=== PATIENT | female | born 1985 | race Caucasian/White ===

== ENCOUNTER → 2020-06-24 | Outpatient (REF) | payer OTHER ==
[2020-06-24 14:13] LABS: BASO % 0.5 % (0.0-1.0); EOS # 0.1 10^3/uL (0.0-0.5); HEMATOCRIT 33.4 % (36.0-47.0); HEMOGLOBIN 9.7 g/dl (12.0-15.5); LYMPH # 2.1 10^3/uL (1.5-5.0); LYMPH % 23.2 % (24.0-44.0); MEAN CORPUSCULAR HEMOGLOBIN 22.6 pg (27.0-33.0); MEAN CORPUSCULAR VOLUME 77.7 fl (80.0-96.0); MONO # 0.6 10^3/uL (0.0-0.8); MONO % 6.3 % (0.0-5.0); NEUTROPHILS # 6.1 10^3/uL (1.5-8.5); NEUTROPHILS % 68.8 % (36.0-66.0); PLATELET COUNT, AUTOMATED 276 10^3/uL (150-450); WHITE BLOOD COUNT 8.9 10^3/uL (4.0-10.0)
[2020-06-24 14:28] LABS: ALBUMIN 3.5 GM/DL (3.2-5.2); ALT/SGPT 21 U/L (12-78); BILIRUBIN,TOTAL 0.1 MG/DL (0.2-1.0); BLOOD UREA NITROGEN 9 MG/DL (7-18); CALCIUM LEVEL 8.9 MG/DL (8.5-10.1); CARBON DIOXIDE LEVEL 27 MEQ/L (21-32); CHLORIDE LEVEL 107 MEQ/L (98-107); CHOLESTEROL LEVEL 158 MG/DL (<200); CHOLESTEROL RISK RATIO 2.194 (<5); CREATININE FOR GFR 0.54 MG/DL (0.55-1.30); GLOMERULAR FILTRATION RATE > 60.0 (>60); GLUCOSE, FASTING 99 MG/DL (70-100); HDL CHOLESTEROL 72 MG/DL (>40); LDL CHOLESTEROL 70 MG/DL (<100); NON-HDL-C 86 MG/DL; POTASSIUM SERUM 4.5 MEQ/L (3.5-5.1); SODIUM LEVEL 140 MEQ/L (136-145); TOTAL 25(OH) VITAMIN D 20.9 NG/ML (30.0-100.0); TOTAL PROTEIN 6.7 GM/DL (6.4-8.2); TRIGLYCERIDES LEVEL 81 MG/DL (<150)
[2020-06-24 14:55] LABS: HEMOGLOBIN A1c 5.4 %
== END ==
LOC: M LAB REF 12:47
PROVIDERS: ATTEND Family Medicine
DX: I10 Essential (primary) hypertension (principal)

== ENCOUNTER → 2020-07-07 | Outpatient (REF) | payer OTHER ==
[~2020-07-07] MED LIST: AMLO1TAB25 PO; BUTA-198 PO; IBUP200C28 PO; LISI40TA PO; PEPT262S PO
[2020-07-07 18:00] LABS: BASO % 0.2 % (0.0-1.0); EOS % 0.5 % (0.0-3.0); HEMATOCRIT 31.7 % (36.0-47.0); HEMOGLOBIN 9.4 g/dl (12.0-15.5); LYMPH # 1.7 10^3/uL (1.5-5.0); MEAN CORPUSCULAR HEMOGLOBIN 22.8 pg (27.0-33.0); MEAN CORPUSCULAR HGB CONC 29.7 g/dl (32.0-36.5); MEAN CORPUSCULAR VOLUME 76.8 fl (80.0-96.0); MONO # 0.5 10^3/uL (0.0-0.8); NEUTROPHILS # 4.4 10^3/uL (1.5-8.5); NEUTROPHILS % 66.1 % (36.0-66.0); PLATELET COUNT, AUTOMATED 305 10^3/uL (150-450); RED BLOOD COUNT 4.13 10^6/uL (4.00-5.40); WHITE BLOOD COUNT 6.6 10^3/uL (4.0-10.0)
[2020-07-07 18:39] LABS: FOLATE 8.6 NG/ML
== END ==
LOC: M LAB REF 16:46
PROVIDERS: ATTEND Nurse Practitioner Family
DX: D64.9 Anemia, unspecified (principal); Z13.9 Encounter for screening, unspecified; N80.9 Endometriosis, unspecified

== ENCOUNTER 2020-07-22 09:25 | Inpatient (IN) | payer OTHER ==
[2020-07-22] VITALS (7 sets, daily range): BP systolic 107–152; BP diastolic 72–87
[~2020-07-22] VITALS: Ht 152.4 cm; Wt 53.7 kg
[2020-07-22] MEDS ORDERED: NS 1,360 ML in IV 1 EA IV ONE (09:45)
[2020-07-22] MEDS ORDERED: cefTRIAXone SOD 2 GM in D5W MINI-BAG PLUS 50 ML IV ONE (10:00)
--- NOTE | 2020-07-22 10:11 | REP ---
INDICATION: SEPSIS/SHOCK. COMPARISON: None. TECHNIQUE: SINGLE PORTABLE AP VIEW OF THE CHEST WAS PERFORMED. FINDINGS: There is no acute infiltrate in either lung. The heart mediastinum are within normal limits. There is a large amount of free intraperitoneal air beneath each hemidiaphragm. IMPRESSION: NO ACUTE PULMONARY DISEASE.Large amount of free intraperitoneal air. Critical Findings: Large amount of free intraperitoneal air in the abdomen. The critical information above was relayed directly by me by telephone to Regi Garland on 07/22/2020 at 10:07 am with readback verification. <Electronically signed by Rj Gibson > 07/22/20 [id number]
[2020-07-22] MEDS ORDERED: PIPERACILLIN/TAZOBACTAM SOD 4.5 GM in D5W MINI-BAG PLUS 50 ML IV ONE (10:15)
[2020-07-22] MEDS ORDERED: KCL 10MEQ/100ML SWI (KRUN) 10 MEQ in IV 1 EA IV ONE ×3 (10:30→17:00)
[2020-07-22 10:37] LABS: HEMATOCRIT 53.7 % (36.0-47.0); HEMOGLOBIN 15.5 g/dl (12.0-15.5); MEAN CORPUSCULAR HEMOGLOBIN 22.1 pg (27.0-33.0); MEAN CORPUSCULAR HGB CONC 28.9 g/dl (32.0-36.5); MEAN CORPUSCULAR VOLUME 76.6 fl (80.0-96.0); PLATELET COUNT, AUTOMATED 542 10^3/uL (150-450); RED BLOOD COUNT 7.01 10^6/uL (4.00-5.40); WHITE BLOOD COUNT 21.6 10^3/uL (4.0-10.0)
[2020-07-22 10:53] LABS: INR 1.51; PARTIAL THROMBOPLASTIN TIME 29.8 SECONDS (24.2-38.5); PROTHROMBIN TIME 18.5 SECONDS (12.5-14.3)
[2020-07-22 11:04] LABS: LYMPHOCYTES 19 % (16-44); METAMYELOCYTES 11 % (0-0); MONOCYTES 5 % (0-5); NEUTROPHILS 24 % (28-66)
[2020-07-22 11:07] LABS: PLATELET ESTIMATE NORMAL (NORMAL)
[2020-07-22] MEDS ORDERED: BUPIVACAINE HCL 0.25% 30ML VIAL As Ordered ONE (11:18)
--- NOTE | 2020-07-22 11:18 | REP ---
INDICATION: perf , free air. COMPARISON: Chest radiograph the same day.. TECHNIQUE: CT Scan of the abdomen and pelvis was performed without intravenous contrast. Sagittal and coronal reconstruction images performed. FINDINGS: Lung bases: Unremarkable. Liver: Grossly unremarkable. Gallbladder: Unremarkable. Spleen: Grossly unremarkable.. Adrenals: Normal. Pancreas: Grossly unremarkable.. Kidneys: No hydronephrosis or nephrolithiasis. Ureters demonstrate no dilatation or calculus. Small and large bowel: Grossly unremarkable. There is dense material scattered throughout the GI tract. Patient reports taking Pepto-Bismol recently which accounts for this. There is extensive free air and free fluid throughout the abdomen and pelvis. It is difficult to determine a precise site of perforation. There is focal possible extraluminal air to the right of the rectum which could represent a site of perforation, or could represent a portion of tortuous air filled rectum. Very small amount of dense material is seen in the right paracolic gutter within the free fluid in that area. Abdominal aorta: No aneurysm. Adenopathy: None. Appendix: Not visualized. Osseous structures: Unremarkable. Pelvis: No mass. Bladder is not seen. IMPRESSION: There is dense material scattered throughout the GI tract. Patient reports taking Pepto-Bismol recently which accounts for this. There is extensive free air and free fluid throughout the abdomen and pelvis. It is difficult to determine a precise site of perforation. There is focal possible extraluminal air to the right of the rectum which could represent a site of perforation, or could represent a portion of tortuous air filled rectum. Very small amount of dense material is seen in the right paracolic gutter within the free fluid in that area. Critical Findings: Extensive free air and free fluid throughout the abdomen and pelvis. Focal air to the right of the rectum may indicate a site of perforation. The critical information above was relayed directly by me by telephone to Regi Garland on 07/22/2020 at 11:09 am with readback verification. <Electronically signed by Rj Gibson > 07/22/20 [id number]
[2020-07-22] MEDS ORDERED: LIDOCAINE 1% SDV 30ML VIAL As Ordered ONE (11:19)
[2020-07-22] MEDS ORDERED: BUTA-198 PO (11:22)
[2020-07-22] MEDS ORDERED: AMLO1TAB25 PO (11:22)
[2020-07-22] MEDS ORDERED: LISI40TA PO (11:22)
[2020-07-22] MEDS ORDERED: PEPT262S PO (11:25)
[2020-07-22] MEDS ORDERED: IBUP200C28 PO (11:25)
[2020-07-22 11:35] LABS: ACETAMINOPHEN LEVEL 7.7 UG/ML (10.0-30.0); ALBUMIN 3.1 GM/DL (3.2-5.2); ALT/SGPT 22 U/L (12-78); AMYLASE 66 U/L (25-115); BILIRUBIN,DIRECT 0.3 MG/DL (0.0-0.2); BILIRUBIN,TOTAL 0.7 MG/DL (0.2-1.0); BLOOD UREA NITROGEN 26 MG/DL (7-18); CALCIUM LEVEL 10.2 MG/DL (8.5-10.1); CARBON DIOXIDE LEVEL 14 MEQ/L (21-32); CHLORIDE LEVEL 92 MEQ/L (98-107); CK-MB VALUE MASS 2.3 NG/ML (<3.6); CPK CREATINE PHOSPHOKINASE 62 U/L (26-192); CREATININE FOR GFR 2.26 MG/DL (0.55-1.30); ETHYL ALCOHOL (ETHANOL) < 0.003 % (0.000-0.010); GLOMERULAR FILTRATION RATE 26.1 (>60); GLUCOSE, FASTING 102 MG/DL (70-100); MAGNESIUM LEVEL 3.3 MG/DL (1.8-2.4); MB/CK RELATIVE INDEX 3.71 (< OR =4); PHOSPHORUS LEVEL 13.1 MG/DL (2.5-4.9); POTASSIUM SERUM 3.3 MEQ/L (3.5-5.1); SALICYLATE LEVEL 2.1 MG/DL (5.0-30.0); SODIUM LEVEL 132 MEQ/L (136-145); TROPONIN I < 0.02 NG/ML (< 0.10)
[2020-07-22] MEDS ORDERED: LIDOCAINE 2% 100MG/5ML SDV (FOR ANES.) As Ordered ONE (11:37)
[2020-07-22] MEDS ORDERED: propofoL 200 MG/20 ML VIAL As Ordered ONE (11:37)
[2020-07-22] MEDS ORDERED: ROCURONIUM BROMIDE 50 MG/5 ML VIAL As Ordered ONE (11:37)
[2020-07-22] MEDS ORDERED: fentaNYL 250 MCG/5 ML INJECTION (J3010) As Ordered ONE (11:38)
[2020-07-22] MEDS ORDERED: MIDAZOLAM INJ 2MG/2ML VIAL (J2250 PER 1MG) As Ordered ONE ×2 (11:38→12:00)
--- NOTE | 2020-07-22 11:39 | HPEPDOC ---
General Surgery H&P Date of Admission Jul 22, 2020 Attending Physician: BRY INFANTE MD History and Physical CHIEF COMPLAINT: abdominal pain,vomiting HISTORY OF PRESENT ILLNESS: Patient is a 35-year-old female with a history of some sort of chronic abdominal pain which was initially attributed to endometriosis. She has just transferred here from [place] as her is in the area she reports that symptoms started about Sunday she was feeling some lower abdominal pain, cervical crampy that she initially attributed to her endometriosis flaring up. This was accompanied with nausea and multiple episodes of bilious vomiting. Symptoms persisted through to Sunday with the pain has worsened despite about Sunday. She was then brought by her to the emergency room as her symptoms was getting worse. She reports shortness of breath due to the degree of pain. She has not had a bowel movement since. She has not really eaten much since the start of her symptoms. Baseline she reports no chronic medical problems save for presumably her endometriosis. Patient reports taking ibuprofen and Pepto-Bismol for her chronic abdominal pain about 4 tablets 2-3 times a day of a 200 mg ibuprofen daily. ALLERGIES: Please see below. HOME MEDICATIONS: Please see below. PAST MEDICAL HISTORY: 1. Chronic abdominal pain probably secondary to endometriosis. 2. hypertension PAST SURGICAL HISTORY: No past surgical history PERSONAL/SOCIAL HISTORY: Patient reports smoking about half a pack a day. Denies alcohol use or recreational drug use.. REVIEW OF SYSTEMS: GENERAL: Symptoms roughly about 5 days, progressive. Denies fevers or chills. Denies any ongoing abnormal weight loss. HEENT: Denies any vision or hearing problems. NECK: [Denies any neck pain]. CARDIOVASCULAR: [Denies chest pain and palpitations]. MUSCULOSKELETAL: [Denies arthralgias, back pain and thrombophlebitis]. SKIN: [Denies rash]. NEUROLOGIC: [Denies headache, stroke and transient ischemic attack]. PSYCHIATRIC: [Denies anxiety and depression]. ENDOCRINE: [Denies thyroid disease]. HEMATOLOGY/ONCOLOGY: [Denies any bleeding or clotting disorder]. HEART: [Denies any chest pains, palpitations, paroxysmal dyspnea, orthopnea]. PULMONARY: Patient reports slight shortness of breath due to pain with deep breathing. GASTROINTESTINAL: See HPI. GENITOURINARY: [Denies dysuria, frequency, hematuria and nocturia]. ENDOCRINE: [Denies polydipsia, polyphagia, polyuria, heat or cold intolerance]. INFECTIOUS: [Denies any recent upper respiratory tract infection, UTI, need for use of antibiotics]. NUTRITION: Reports poor appetite. PHYSICAL EXAMINATION: VITAL SIGNS: Please see below. GENERAL APPEARANCE: Patient appears sick, tachypneic, use of accessory muscles with talking, breathing, uncomfortable. not moving/single position laying flat on bed. Awake, alert, oriented. Looks older than stated age HEENT: Normocephalic, atraumatic. lips and mucosa very dry CHEST: No chest wall abnormalities. Normal respiratory motion/effort. NECK: Supple. No thyromegaly. No lymphadenopathies. LUNGS: Lung sounds are clear to auscultation bilaterally. No wheezing appreciated.tachypneic, uses accessory muscles for breathing HEART: No chest wall abnormalities. Heart rate and rhythm are regular with no murmurs, tachycardic ABDOMEN: abdomen is moderately distended, tympanitic to percussion, generalized involuntary guarding on percussion, tender worse at the right lower quadrant area but tender everywhere. SKIN: warm, dry. EXTREMITIES: no significant extremity edema. NEUROLOGICAL: awake, alert, oriented. ANCILLARIES: . LABORATORY DATA: Please see below. MICROBIOLOGY: Please see below. IMAGING: CXR. NO ACUTE PULMONARY DISEASE.Large amount of free intraperitoneal air. IMPRESSION AND PLAN: Perforated viscus, pneumoperitoneum generalized peritonitis Patient appears sick, septic with generalized peritonitis secondary to pe rforated viscus with large amount of air underneath the diaphragm. Given a general history as well as the intake of NSAIDs I would think probably gastric or duodenal ulcer with perforation though most of her tenderness or over the right lower quadrant area so possibility of some sigmoid diverticulitis with perforation also. Patient was advised that she needs to go to the operating room emergently. I'll start with diagnostic laparoscopy to locate site of perforation and depending from what needs to be done may need to be converted to exploratory laparotomy. I've also praised her and her potential need for prolonged intubation, need for pressors, blood transfusion given how sick she presented to us. She has been given at least a liter of IV fluid . With a somewhat adequate or appropriate response hemodynamically. We will bring her to the operating room once the OR is available. Vital Signs Vital Signs Date Time Temp Pulse Resp B/P (MAP) Pulse Ox O2 Delivery O2 Flow Rate FiO2 07/22/20 11:16 121 109/60 (76) 98 07/22/20 11:14 97.0 07/22/20 09:48 26 Room Air Laboratory Data Labs 24H Laboratory Tests 2 07/22/20 09:59: POC pH (Misc Panel) 7.116*L, POC Base Excess (Misc Panel) -22.0L, POC Saturated Percent O2 (Misc) 98, POC pO2 (Misc Panel) 127.0H, POC pCO2 (Misc Panel) 21.5L, POC HCO3 (Misc Panel) 6.9L, POC Total CO2 (Misc Panel) 8.0L 07/22/20 10:15: Neutrophils (%) (Auto) , Nucleated Red Blood Cells % (auto) 0.1H, Neutrophils 24L, Band Neutrophils 41H, Lymphocytes (Manual) 19, Monocytes (Manual) 5, Metamyelocytes 11H, Red Blood Cell Morphology NORMAL, Platelet Estimate NORMAL, Prothrombin Time 18.5H, Prothromb Time International Ratio 1.51, Activated Partial Thromboplast Time 29.8, Lactic Acid Level 14.9*H 07/22/20 10:16: POC Total CO2 (Misc Panel) 16.0L, POC Glucose (Misc Panel) 105, POC Sodium (Misc Panel) 131L, POC Potassium (Misc Panel) 2.6*L, POC Chloride (Misc Panel) 94L, POC Blood Urea Nitrogen (Misc Panel 29H, POC Ionized Calcium (Misc Panel) 4.6, POC Creatinine (Misc Panel) 2.1H, POC Hematocrit (Misc Panel) 56.0H 07/22/20 10:20: POC Beta HCG, Quantitative < 5.0 07/22/20 10:22: Coronavirus (COVID-19)(PCR) NEGATIVE CBC/BMP Laboratory Tests 07/22/20 10:15 Microbiology Microbiology 07/22/20 Blood Culture, Received Pending 07/22/20 Blood Culture, Received Pending Home Medications Scheduled Amlodipine Besylate (Amlodipine Besylate) 10 Mg Tablet, 10 MG PO DAILY, (Reported) Lisinopril (Lisinopril) 40 Mg Tablet, 40 MG PO DAILY, (Reported) Scheduled PRN Bismuth Subsalicylate (Pepto-Bismol) 262 Mg/15 Ml Oral.susp, 30 ML PO PRN PRN for NAUSEA, (Reported) Butalb/Acetaminophen/Caffeine (Iqxmvr-Pytorhva-Mzrw 50-325-40) 1 Each Tablet, 1 TAB PO TID PRN for HEADACHE, (Reported) Ibuprofen (Ibuprofen) 200 Mg Capsule, 800 MG PO TID PRN for PAIN / FEVER, (Reported) Allergies Coded Allergies: No Known Allergies (Unverified , 07/22/20) A-FIB/CHADSVASC A-FIB History Current/History of A-Fib/PAF?: No Current PO Anticoag Therapy: No BRY INFANTE MD Jul 22, 2020 11:39
[2020-07-22] MEDS ORDERED: PHENYLephrine HCL 500 MCG/5 ML (100MCG/ML) SYRINGE (J2370) As Ordered ONE ×2 (12:19→12:25)
[2020-07-22] MEDS ORDERED: VASOPRESSIN INJ 20 UNITS/ML VIAL As Ordered ONE (12:19)
[2020-07-22] MEDS ORDERED: SUCCINYLCHOLINE 100 MG/5 ML SYRINGE (J0330) As Ordered ONE (12:52)
[2020-07-22] MEDS ORDERED: PHENYLEPHRINE 10MG/ML 1ML VIAL (J2370 PER 1) As Ordered ONE ×2 (13:46→14:04)
[2020-07-22] MEDS ORDERED: ACETAMINOPHEN 1000MG 100ML IV BTL (OFIRMEV) (J0131 PER 10MG) As Ordered ONE (14:16)
[2020-07-22] MEDS ORDERED: dexameTHASONE 4 MG/ML 1ML VIAL (J1100 PER 1MG) As Ordered ONE (14:16)
[2020-07-22] MEDS ORDERED: ONDANSETRON 4MG/2ML VIAL As Ordered ONE (14:16)
[2020-07-22] MEDS ORDERED: SUGAMMADEX SODIUM 500 MG/5 ML VIAL (BRIDION) As Ordered ONE (14:37)
[2020-07-22] MEDS ORDERED: HYDROmorphone HCL 2 MG/ML 1ML VIAL (J1170) As Ordered ONE (15:21)
[2020-07-22] MEDS ORDERED: NS 1,000 ML IV SCH (15:40)
[2020-07-22] MEDS ORDERED: ONDANSETRON 4MG/2ML VIAL IV PRN ×3 (15:45→17:00)
[2020-07-22] MEDS ORDERED: ACETAMINOPHEN TAB 650MG DOSE (2X325MG) PO PRN (15:45)
[2020-07-22] MEDS ORDERED: KETOROLAC 30 MG/ML 1ML VIAL IV PRN (15:45)
[2020-07-22] MEDS ORDERED: MORPHINE 1MG/ML IN 0.9% NACL 100ML IV BAG As Ordered ONE (15:57)
--- NOTE | 2020-07-22 15:59 | POST-OPPD ---
Postoperative Procedure Note Date Of Procedure: Jul 22, 2020 PREOPERATIVE DIAGNOSIS: perforated viscus POSTOPERATIVE DIAGNOSIS: perforated antral ulcer FINDINGS: large perforated antral ulcer at the posterior wall PROCEDURE: Diagnostic Laparoscopy converted to Exploratory Laparotomy, Antrectomy, Greer-en-Y gastrojejunostomy SURGEON: Desean Carson MD CLIENT SERVICES ANALYST: Estephania Ashby (MSIII) ANESTHESIA: General Anesthesia SPECIMENS: gastric antrum ESTIMATED BLOOD LOSS: 100 mL REPLACED: 4500 mL crystalloid, 250 mL urine DRAINS: 19 Joel Drain to duodenal stump COMPLICATIONS: none, extubated to PACU, remains critically ill POSTOPERATIVE CONDITION: stable, off pressors DESEAN CARSON MD Jul 22, 2020 15:59
[2020-07-22] MEDS ORDERED: EPIDURAL/PCA KEYS XX PRN (16:00)
[2020-07-22] MEDS ORDERED: diphenhydrAMINE 50MG/ML VIAL (J1200) IV PRN (16:00)
[2020-07-22] MEDS ORDERED: NALOXONE INJ 0.4MG/1ML VIAL (J2310 PER 1MG) IV PRN (16:00)
[2020-07-22] MEDS: MORPHINE 1MG/ML IN 0.9% NACL 100ML IV BAG IV PRN (16:05)
[2020-07-22 16:09] LABS: ABG BASE EXCESS -8.2 (-2.0-2.0); ABG HCO3 16.9 MEQ/L (22.0-26.0); ABG O2 SATURATION 98.9 % (95.0-99.0); ABG PARTIAL PRESSURE CO2 33.1 mmHg (35.0-45.0); ABG PARTIAL PRESSURE O2 142.9 mmHg (75.0-100.0); ABG STANDARD HCO3 17.9 MEQ/L (22.0-26.0); ABG TOTAL CO2 17.9 MEQ/L (22.0-29.0); ABG pH (ARTERIAL) 7.325 UNITS (7.350-7.450)
[2020-07-22 16:29] LABS: HEMATOCRIT 33.5 % (36.0-47.0); MEAN CORPUSCULAR HEMOGLOBIN 21.8 pg (27.0-33.0); MEAN CORPUSCULAR HGB CONC 30.4 g/dl (32.0-36.5); MEAN CORPUSCULAR VOLUME 71.7 fl (80.0-96.0); RED BLOOD COUNT 4.67 10^6/uL (4.00-5.40); WHITE BLOOD COUNT 15.4 10^3/uL (4.0-10.0)
[2020-07-22 16:41] LABS: ALBUMIN 1.6 GM/DL (3.2-5.2); ALT/SGPT 40 U/L (12-78); BILIRUBIN,TOTAL 0.4 MG/DL (0.2-1.0); BLOOD UREA NITROGEN 24 MG/DL (7-18); CALCIUM LEVEL 6.8 MG/DL (8.5-10.1); CARBON DIOXIDE LEVEL 20 MEQ/L (21-32); CHLORIDE LEVEL 106 MEQ/L (98-107); GLOMERULAR FILTRATION RATE > 60.0 (>60); GLUCOSE, FASTING 109 MG/DL (70-100); POTASSIUM SERUM 3.2 MEQ/L (3.5-5.1); SODIUM LEVEL 138 MEQ/L (136-145); TOTAL PROTEIN 3.6 GM/DL (6.4-8.2)
[2020-07-22] MEDS ORDERED: LR 1,000 ML IV SCH (17:00)
[2020-07-22] MEDS ORDERED: fentaNYL 100 MCG/2 ML INJECTION (J3010) IV PRN (17:00)
[2020-07-22] MEDS ORDERED: HYDROMORPHONE HCL 0.5 MG/ 0.5 ML SYRINGE (J1170 PER 1) IV PRN (17:00)
[2020-07-22] MEDS ORDERED: METOCLOPRAMIDE INJ 10MG/2ML VIAL (J2765 PER 1) IV PRN (17:00)
[2020-07-22 17:29] LABS: HEMOGLOBIN 10.2 g/dl (12.0-15.5); PLATELET COUNT, AUTOMATED 309 10^3/uL (150-450)
[2020-07-22 17:43] LABS: LYMPHOCYTES 5 % (16-44); NEUTROPHILS 90 % (28-66)
[2020-07-22 17:44] LABS: ANISOCYTOSIS 2+; MICROCYTOSIS 1+; OVALOCYTES 1+; PLATELET ESTIMATE NORMAL (NORMAL)
[2020-07-22] MEDS: PIPERACILLIN/TAZOBACTAM SOD 3.375 GM in D5W MINI-BAG PLUS 50 ML IV SCH ×2 (17:54→22:58)
[2020-07-22] MEDS: LR 1,000 ML IV SCH (17:54)
[2020-07-22] MEDS ORDERED: FLUCONAZOLE 200 MG in IV 1 EA IV ONE (21:00)
[2020-07-23] VITALS (12 sets, daily range): BP systolic 107–159; BP diastolic 59–97
[2020-07-23] MEDS: LR 1,000 ML IV SCH (03:07)
[2020-07-23] MEDS: PIPERACILLIN/TAZOBACTAM SOD 3.375 GM in D5W MINI-BAG PLUS 50 ML IV SCH ×4 (05:27→23:45)
[2020-07-23 05:57] LABS: HEMATOCRIT 27.8 % (36.0-47.0); HEMOGLOBIN 8.5 g/dl (12.0-15.5); MEAN CORPUSCULAR HEMOGLOBIN 21.9 pg (27.0-33.0); MEAN CORPUSCULAR HGB CONC 30.6 g/dl (32.0-36.5); MEAN CORPUSCULAR VOLUME 71.5 fl (80.0-96.0); PLATELET COUNT, AUTOMATED 266 10^3/uL (150-450); RED BLOOD COUNT 3.89 10^6/uL (4.00-5.40); WHITE BLOOD COUNT 18.1 10^3/uL (4.0-10.0)
[2020-07-23 06:20] LABS: BLOOD UREA NITROGEN 13 MG/DL (7-18); CALCIUM LEVEL 7.3 MG/DL (8.5-10.1); CARBON DIOXIDE LEVEL 24 MEQ/L (21-32); CHLORIDE LEVEL 108 MEQ/L (98-107); CREATININE FOR GFR 0.41 MG/DL (0.55-1.30); GLOMERULAR FILTRATION RATE > 60.0 (>60); GLUCOSE, FASTING 83 MG/DL (70-100); POTASSIUM SERUM 3.2 MEQ/L (3.5-5.1); SODIUM LEVEL 141 MEQ/L (136-145)
--- NOTE | 2020-07-23 07:01 | ECGEPIP ---
[facility] - ED Test Date: 2020-07-22 Pat Name: BASILIO JADE Department: Room: - Gender: Female Legal Manager: : [id number] Requested By: Regi Garland Order Number: [id number] Reading MD: Panda Uribe Measurements Intervals [place] Rate: 136 P: 58 NM: 92 QRS: 38 QRSD: 90 T: 57 QT: 305 QTc: 459 Interpretive Statements SINUS TACHYCARDIA WITH SHORT NM INTERVAL p pULMONALE NONSPECIFIC ST & T-WAVE ABNORMALITY Comparison tracing not on file Electronically Signed on 07-23-2020 7:01:20 EDT by Panda Uribe
[2020-07-23] MEDS ORDERED: KCL 10MEQ/100ML SWI (KRUN) 10 MEQ in IV 1 EA IV ONE (07:30)
--- NOTE | 2020-07-23 08:14 | IPNPDOC ---
Text Note Date of Service The patient was seen on 07/23/20. NOTE Patient seen in the ICU. She underwent emergency exploratory laparotomy and found to have a large posterior wall perforation secondary to an ulcer at the antrum status post antrectomy and Greer-en-Y gastrojejunostomy. Overnight she is hemodynamically stable. Her tachycardia has improved and she is making adequate urine output. She reports discomfort along the incision line. Denies any nausea. Vital signs postoperatively shows her tachycardia is slowly improving. Heart rat es anywhere between 80s to low 100 100s. Temperature is 98.2. Blood pressure is 117/72, 99% at room air I/O urine output is 1400 mL overnight 650 mL drain this morning. NG tube drainage is 50 mL's VINOD drainage is 300 mL's On examination patient is laying wide-awake, looks fairly comfortable she is alert and oriented. She has a nasogastric tube in place working appropriately with bilious drainage No jugular venous distention Lung sounds are clear to auscultation bilaterally Regular rhythm, mildly tachycardic Abdomen is mildly distended soft relatively quiet. Postoperative dressings are clean and dry. VINOD drainage which is at or close to the duodenal stump is serosanguineous Minimal extremity edema Impression and plan Postoperative day 1 following exploratory laparotomy, antrectomy and Greer-en-Y gastrojejunostomy for posterior ventricle perforated ulcer She has done well postoperatively. I'll keep her nothing by mouth this allow her some sips of water. Tentatively we'll schedule an upper GI series on Sunday prior to feeding her. I'll keep her in the ICU today and most likely she'll be okay to be moved to a regular floor she remained stable 24 hours post procedure. I encouraged her to use the incentive spirometer. I have kept her on Protonix 40 mg IV every 12 hours as well as those and and Diflucan for coverage. Get her out of bed at least in the drop on the chair today. Lovenox for DVT prophylaxis. Continue morphine MARBLEIZER for pain control. VS,Fishbone, I+O VS, Fishbone, I+O Laboratory Tests 07/22/20 10:15 07/22/20 16:00 07/23/20 05:38 Vital Signs Date Time Temp Pulse Resp B/P (MAP) Pulse Ox O2 Delivery O2 Flow Rate FiO2 07/23/20 05:00 92 117/72 (91) 99 Room Air 149/74 07/23/20 04:00 98.2 16 07/22/20 19:00 2.0 I&O- Last 24 Hours up to 6 AM 07/23/20 06:00 Intake Total 8175 ml Output Total 2520 ml Balance 5655 ml BRY INFANTE MD Jul 23, 2020 08:14
[2020-07-23] MEDS: KCL 20MEQ IN D5/0.45NS 1000ML 1,000 ML IV SCH ×2 (08:24→16:22)
--- NOTE | 2020-07-23 08:35 | ROOPDOC ---
[facility] Report Of Operation Report of Operation DATE OF PROCEDURE: 07/22/20 PREPROCEDURE DIAGNOSES: Perforated viscus. POSTPROCEDURE DIAGNOSES: Perforated posterior antral ulcer. PROCEDURE: Diagnostic laparoscopy converted to an exploratory laparotomy, antrectomy, Greer-en-Y gastrojejunostomy, washout of abdomen SURGEON: Desean Carson MD ROD HANGER: Estephania Ashby (MS III) ANESTHESIA: General Anesthesia. ESTIMATED BLOOD LOSS: Approximately 100 mL. COMPLICATIONS: none. REMARKS: Patient is a 35-year-old female presenting with sepsis, generalized peritonitis and evidence of large amount of pneumoperitoneum as well as ascites on CT. She is brought to the OR for exploration after a brief period of IV fluid resuscitation.. PROCEDURE NOTE: Large amounts of murky fluid throughout the abdomen with exudative material covering the small bowel in the pelvis, no loculated abscess. Large posterior antral ulcer and markedly gradation of the posterior wall of the stomach adhered to the pancreas underneath.. DESCRIPTION OF PROCEDURE: Patient was given Zosyn 3.375 g IV preoperatively. She was given fluid boluses in the emergency room for resuscitation. She was brought to the operating room, placed supine on the table. Bilateral compression boots were placed on both lower extremities were DVT prophylaxis. Gen. endotracheal anesthesia was given. She was placed on vasopressor for pressure support. An a line was established by anesthesia. Brewster catheter was placed for urine output monitoring. Her abdomen was widely prepped and draped in usual sterile fashion. We paused for a surgical timeout using both pre-incision safety checklist to verify correct patient, procedure site and additional clinical information prior to beginning the proced ure I began with the left upper quadrant entry. A Veress needle was inserted on a controlled fashion. CO2 insufflation and started to pressure of 15 mmHg. Using the same incision a 5 mm optical port was placed under direct vision of laparoscope. On entry to the abdomen in immediately noted a large amount of greenish, murky ascites throughout the whole of the abdomen. Most of the bowels were covered with thin omentum. There is generalized ileus noted. There is a noticeable area of inflammation at the distal portion of the stomach with some old hematoma also noted. I placed a 5 mm port just below the umbilicus and another at the right and left midclavicular lines for my instrument and camera port. She was placed on a mild reverse Trendelenburg position her right side tilted upwards. Epting some no fluid sample for cultures. The visible ascites were suctioned off on the upper abdomen. I started bluntly dissecting at the area of the notable hematoma and lifted the lower portion of the stomach and immediately noticing large opening at the posterior wall of the antrum with heaped up mucosa. The whole is more than 2 cm in size. There is some mild oozing along the lower border of the perforation. Noting the size of the hole which would not be amenable to a simple omental patch repair, I then converted to open surgery. The abdomen was deflated, a midline incision was created at the mid epigastrium to several centimeters below the umbilicus. This was deepened through to the layers of the abdominal wall. The anterior fascia was opened up and lifted and entered the abdomen releasing the pneumoperitoneum. The fascial incision was extended through to the skin incisions and enlarged further for adequate view. A Jose self-retaining retractor was placed. All the prior laparoscopy ports were removed. At this point examined the area of the perforation. This is at the posterior wall of the gastric antrum. Roughly a 2 cm opening is noted with the posterior wall there is paper thin, covered with exudate and adherent to the capsule of the pancreas. The gastrocolic omentum proximal to this was opened up and I entered the lesser sac and the posterior wall of the stomach proximally from the pancreas. Similarly the gastrohepatic ligament was opened up along the lesser curvature both proximally and distally to the area of the perforation. An adequate window was created proximal to the perforation to the distal body of the stomach. The stomach was then divided with 3 firings of an echelon 60 mm stapler with a green load. Bring up the proximal stomach allow me to further work on the posterior wall at the area of the perforation and I carefully dissected this from the capsule of the pancreas. There are couple of enlarged lymph nodes that was included with the specimen. I dissected further beyond the perforation to the proximal duodenum. Once an adequate margin from the perforation which was healthy was achieved the duodenum was transected with the same echelon 60 stapler with a green load. The staple line was then reinforced with 3-0 PDS in a running fashion. I then explored the rest of the abdomen. The rest of the small bowel was exteriorized and there were exudative deposits on the wall of the distal small bowel in the pelvis. The pelvic collections were thoroughly irrigated until we have clear returns. The bowel was run antegradely to the cecum with visualization of the appendix which was normal. I then retrogradely ran the bowel and wiped of the exudates on the davenport of the small bowel. Until we reached the ligament of Treitz. I measured about 50 cm from the ligament of Treitz and divided the bowel at this level with a 75 mm MARKEL stapler with a blue load. The mesentery was further divided to allow me to pull the distal portion of the bowel to the posterior wall of the stomach. At this point I realized that there is a good sized defect in the mesocolon probably from the dissection of the stomach from the gastrocolic ligament. The colon itself remains viable and nonischemic. I positioned the distal limb posterior to the stomach with 3-0 silk stay sutures. An enterotomy/gastrotomy was created and a hfty-xe-avtz anastomosis was fashioned off with a 75 linear stapler with a blue load. The anastomosis was inspected for bleeding. The gastro-enterotomy was then repaired with a 30V LOC in a running fashion with a second layer of 3-0 silk in a Lembert fashion. The anastomosis was tested under water and no leak was noted. A jejuno-jejunostomy downstream was then fashioned off to complete the limb and connected the biliopancreatic limb downstream. This was again aligned with 3-0 silk stay sutures and an enteroenterostomy created. Again a 75 MARKEL stapler with a blue load was used to create a hitw-sq-pjas anastomosis between the 2 jejunal limbs. The enterotomy was then closed off with 30V LOC in a running fashion and a second layer of 3-0 silk in a Lembert fashion. Again we tested this anastomosis for a leak and no leak was noted. As there was a sizable gap in the mesocolon, I closed this off with interrupted sutures of 3-0 silk to the jejunal limb to prevent an internal hernia. A 19 Joel drain was then threaded through from the left side of the abdomen and left close to the duodenal stump for postoperative monitoring. The fascial opening was then closed with 3 running sutures of #1 Stratafix. The subcutaneous tissue was irrigated and the skin was closed with mame. Bulky gauze dressings in placed on top of the midline incision. The drain was secured to skin with 2-0 silk. The remaining lateral port incision was closed with mame. Patient held up during the procedure pretty well and we were able to wean her off the vasopressor. She made adequate urine. She was promptly awakened, extubated and brought to the recovery room in a stable condition. DESEAN CARSON MD Jul 23, 2020 08:35
[2020-07-23] MEDS: ENOXAPARIN 30MG/0.3ML SYRINGE (J1650 PER 10MG) SC SCH (09:47)
[2020-07-23] MEDS: PANTOPRAZOLE 40MG VIAL (C9113 PER 1) IV SCH (09:47)
[2020-07-23] MEDS: MORPHINE 1MG/ML IN 0.9% NACL 100ML IV BAG IV PRN (16:22)
[2020-07-23] MEDS: NICOTINE 14 MG/24 HR TRANSDERMAL TD PRN (17:25)
[2020-07-23] MEDS: FLUCONAZOLE 100 MG in IV 1 EA IV SCH (21:45)
[2020-07-24] VITALS (7 sets, daily range): BP systolic 142–160; BP diastolic 64–98
[2020-07-24] MEDS: PIPERACILLIN/TAZOBACTAM SOD 3.375 GM in D5W MINI-BAG PLUS 50 ML IV SCH ×4 (04:38→22:16)
[2020-07-24 04:42] LABS: HEMATOCRIT 26.4 % (36.0-47.0); HEMOGLOBIN 8.1 g/dl (12.0-15.5); MEAN CORPUSCULAR HEMOGLOBIN 22.4 pg (27.0-33.0); MEAN CORPUSCULAR HGB CONC 30.7 g/dl (32.0-36.5); MEAN CORPUSCULAR VOLUME 72.9 fl (80.0-96.0); PLATELET COUNT, AUTOMATED 214 10^3/uL (150-450); RED BLOOD COUNT 3.62 10^6/uL (4.00-5.40); WHITE BLOOD COUNT 15.8 10^3/uL (4.0-10.0)
[2020-07-24 04:57] LABS: BLOOD UREA NITROGEN 8 MG/DL (7-18); CALCIUM LEVEL 7.6 MG/DL (8.5-10.1); CARBON DIOXIDE LEVEL 28 MEQ/L (21-32); CHLORIDE LEVEL 105 MEQ/L (98-107); CREATININE FOR GFR 0.35 MG/DL (0.55-1.30); GLOMERULAR FILTRATION RATE > 60.0 (>60); GLUCOSE, FASTING 104 MG/DL (70-100); POTASSIUM SERUM 2.8 MEQ/L (3.5-5.1); SODIUM LEVEL 138 MEQ/L (136-145)
[2020-07-24 05:13] LABS: ANISOCYTOSIS 1+; LYMPHOCYTES 9 % (16-44); METAMYELOCYTES 2 % (0-0); MONOCYTES 2 % (0-5); NEUTROPHILS 82 % (28-66); PLATELET ESTIMATE NORMAL (NORMAL)
[2020-07-24 05:14] LABS: HYPOCHROMASIA 2+; POLYCHROMASIA 1+
[2020-07-24] MEDS ORDERED: KCL 10MEQ/100ML SWI (KRUN) 10 MEQ in IV 1 EA IV SCH (05:15)
[2020-07-24] MEDS ORDERED: POTASSIUM CHLORIDE INJ 40 MEQ in LR 1,000 ML IV SCH (06:00)
[2020-07-24 07:14] LABS: MAGNESIUM LEVEL 2.3 MG/DL (1.8-2.4)
[2020-07-24] MEDS: ENOXAPARIN 30MG/0.3ML SYRINGE (J1650 PER 10MG) SC SCH (09:35)
[2020-07-24] MEDS: PANTOPRAZOLE 40MG VIAL (C9113 PER 1) IV SCH (09:35)
[2020-07-24] MEDS: POTASSIUM CHLORIDE INJ 40 MEQ in NS 0.45% 1,000 ML IV SCH (11:58)
[2020-07-24] MEDS: FLUCONAZOLE 100 MG in IV 1 EA IV SCH (20:13)
[2020-07-25 02:00] VITALS: BP 138/82
[2020-07-25] MEDS: PIPERACILLIN/TAZOBACTAM SOD 3.375 GM in D5W MINI-BAG PLUS 50 ML IV SCH ×4 (04:32→23:12)
[2020-07-25] MEDS: POTASSIUM CHLORIDE INJ 40 MEQ in NS 0.45% 1,000 ML IV SCH ×3 (04:33→19:37)
[2020-07-25 06:00] VITALS: BP 138/76
[2020-07-25 08:42] LABS: BLOOD UREA NITROGEN 7 MG/DL (7-18); CALCIUM LEVEL 7.6 MG/DL (8.5-10.1); CARBON DIOXIDE LEVEL 28 MEQ/L (21-32); CHLORIDE LEVEL 103 MEQ/L (98-107); CREATININE FOR GFR 0.22 MG/DL (0.55-1.30); GLOMERULAR FILTRATION RATE > 60.0 (>60); GLUCOSE, FASTING 76 MG/DL (70-100); SODIUM LEVEL 139 MEQ/L (136-145)
[2020-07-25] MEDS: PANTOPRAZOLE 40MG VIAL (C9113 PER 1) IV SCH (09:22)
[2020-07-25] MEDS: ENOXAPARIN 30MG/0.3ML SYRINGE (J1650 PER 10MG) SC SCH (09:23)
[2020-07-25 10:00] VITALS: BP 135/72
[2020-07-25 14:00] VITALS: BP 156/86
[2020-07-25 18:05] VITALS: BP 160/80
[2020-07-25] MEDS: NICOTINE 14 MG/24 HR TRANSDERMAL TD PRN (18:56)
[2020-07-25] MEDS: MORPHINE 1MG/ML IN 0.9% NACL 100ML IV BAG IV PRN (19:37)
[2020-07-25] MEDS: lisinopriL 40 MG TAB PO SCH (20:10)
[2020-07-25] MEDS: FLUCONAZOLE 100 MG in IV 1 EA IV SCH (21:10)
[2020-07-25 22:00] VITALS: BP 164/88
[2020-07-26] VITALS (7 sets, daily range): BP systolic 144–164; BP diastolic 80–99
[2020-07-26] MEDS: PIPERACILLIN/TAZOBACTAM SOD 3.375 GM in D5W MINI-BAG PLUS 50 ML IV SCH ×4 (04:10→23:15)
[2020-07-26 06:28] LABS: BASO % 0.1 % (0.0-1.0); EOS % 0.2 % (0.0-3.0); HEMATOCRIT 28.8 % (36.0-47.0); HEMOGLOBIN 8.7 g/dl (12.0-15.5); LYMPH # 1.1 10^3/uL (1.5-5.0); LYMPH % 11.7 % (24.0-44.0); MEAN CORPUSCULAR HGB CONC 30.2 g/dl (32.0-36.5); MEAN CORPUSCULAR VOLUME 72.7 fl (80.0-96.0); MONO # 0.9 10^3/uL (0.0-0.8); MONO % 9.7 % (0.0-5.0); NEUTROPHILS # 7.5 10^3/uL (1.5-8.5); NEUTROPHILS % 77.8 % (36.0-66.0); PLATELET COUNT, AUTOMATED 239 10^3/uL (150-450); RED BLOOD COUNT 3.96 10^6/uL (4.00-5.40); WHITE BLOOD COUNT 9.6 10^3/uL (4.0-10.0)
[2020-07-26 06:50] LABS: BLOOD UREA NITROGEN 6 MG/DL (7-18); CALCIUM LEVEL 8.2 MG/DL (8.5-10.1); CARBON DIOXIDE LEVEL 22 MEQ/L (21-32); CHLORIDE LEVEL 102 MEQ/L (98-107); CREATININE FOR GFR 0.23 MG/DL (0.55-1.30); GLOMERULAR FILTRATION RATE > 60.0 (>60); GLUCOSE, FASTING 80 MG/DL (70-100); POTASSIUM SERUM 3.6 MEQ/L (3.5-5.1); SODIUM LEVEL 136 MEQ/L (136-145)
[2020-07-26] MEDS: lisinopriL 40 MG TAB PO SCH (08:21)
[2020-07-26] MEDS: amLODIPine 10 MG TAB PO SCH (08:21)
[2020-07-26] MEDS: ENOXAPARIN 30MG/0.3ML SYRINGE (J1650 PER 10MG) SC SCH (08:22)
[2020-07-26] MEDS: PANTOPRAZOLE 40MG VIAL (C9113 PER 1) IV SCH (08:22)
[2020-07-26] MEDS ORDERED: GASTROGRAFIN SOLUTION 30ML (Q9963) As Ordered ONE (09:56)
[2020-07-26] MEDS: POTASSIUM CHLORIDE INJ 40 MEQ in NS 0.45% 1,000 ML IV SCH (12:52)
--- NOTE | 2020-07-26 13:01 | IPN ---
DATE: 07/24/2020 HISTORY: The patient is postop day number two from an antrectomy and Greer-en-Y gastrojejunostomy for a large posterior perforating ulcer. This was performed by Dr. Carson. The patient has remained in the Intensive Care Unit postop. She has a nasogastric tube in place as well as an abdominal drain. She has a CLEANING STAFF SUPERVISOR for pain management. VITAL SIGNS: She has been afebrile over the last 24 hours. Her pulse is in the 80s and 90s. Blood pressure is excellent and her room air oxygen saturation is in the mid to high 90s. Intake and output show that yesterday she had 2,900 in with 2,300 out. Her urine output has been excellent. NG output is fairly minimal with actually only 75 mL yesterday from her NG tube. Her abdominal drain has 200 mL yesterday and 150 recorded today. PHYSICAL EXAMINATION: GENERAL APPEARANCE: The patient is alert, oriented and pleasant. She does report some abdominal tenderness along her incision when she is moving. She does report that she has been up ambulating. HEENT: Sclerae are anicteric. SKIN: Warm and dry. HEART: Regular rate and rhythm in the 70s to 80s. LUNGS: Clear. ABDOMEN: Flat. She does have some bowel sounds present. Her abdominal drain has a small amount of serous fluid in the bottle. Her midline dressing is clean and dry. Her Brewster catheter is draining very clear urine. LABORATORY STUDIES: White count of 16,000, hemoglobin 8, hematocrit 26 and a platelet count of 214,000. Differential shows 82% neutrophils, 5 bands and 9 lymphocytes. Chemistry profile shows normal electrolytes with the exception of a potassium of 2.8. This was 3.2. yesterday. BUN is 8, creatinine 0.35 and a glucose of 104. IMPRESSION: Patient is doing very well now 2 days postop from her partial gastrectomy and gastrojejunostomy for perforation. She remains on Zosyn for antibiotic coverage and is receiving Lovenox for DVT prophylaxis. She is using her CLEANING STAFF SUPERVISOR and had used approximately 15 mg of Morphine over the last 12 hours which seems appropriate. PLAN: * I will reduce her IV rate as I think she does not need the additional fluid at this time. I believe she is starting to mobilize some excess fluid already. * I have changed her fluid to half normal saline with 40 mEq of potassium chloride to try to boost her potassium level. * She will remain in her current antibiotics. * She does not appear to require intensive care at this point, and I will order transfer to a surgical floor. * Dr. Carson has requested that we maintain her NG tube over the weekend as he intends to have a contrast swallowing study done to test her anastomosis on Sunday, the . ELIE
--- NOTE | 2020-07-26 13:02 | IPN ---
DATE: 07/25/2020 HISTORY: Patient is a 35-year-old woman now postoperative day #3 from a distal gastrectomy and gastrojejunal reconstruction for a large perforated ulcer. She has a drain in the abdomen as well as a nasogastric tube in place. She has been using a patient controlled analgesia (CRM DYNAMICS DEVELOPER) for pain control. She remains on antibiotics with fluconazole and Zosyn. Vital signs show that she has been afebrile over the past 24 hours. Her pulse is in the 60s and 70s and her blood pressure is good with a normal room air oxygen saturation. Intake and output shows that yesterday she had 1800 recorded in with 2400 mL recorded out. She had 385 mL from her abdominal drain. PHYSICAL EXAMINATION: Patient looks quite comfortable lying on the hospital bed. She reports some expected incisional pain. She reports that she has not had any significant flatus but feels as if she might at any time. Skin is warm and dry. Neck is supple. Heart and lung exams are unremarkable. The abdomen is flat. She has bowel sounds present. Her dressing is clean and dry and her drain exits from beneath her midline dressing and extends to the left and has some turbid serous fluid in the collection container. LABORATORY STUDIES: Today, include a medical profile that shows a sodium of 139 and her potassium is now up to 4.0. The remainder of the electrolytes are normal with a BUN of 7, creatinine 0.2, and a glucose of 76. IMPRESSION: Patient is doing very well now postoperative day #3 from her gastric resection. Her drain has a fair amount of serous fluid. Her potassium has been replenished up to 4.0. She has been doing some walking and is using her patient controlled analgesia (CRM DYNAMICS DEVELOPER) appropriately. PLAN: Patients nasogastric (NG) tube will be continued in anticipation of a contrast upper gastrointestinal (GI) study tomorrow. Her IV will be continued at its reduced rate as she still has an excellent urine output. Her antibiotics will be continued. I will put in an order to have her abdominal dressing changed daily. [facility]
--- NOTE | 2020-07-26 17:30 | REP ---
INDICATION: ffup gastrojejunostomy. COMPARISON: None. TECHNIQUE: The procedure was performed under the direct supervision of Dr. GIBSON. The images were reviewed with Dr. GIBSON. A 50/50 solution of Gastrografin and water was instilled through the NG tube. FINDINGS: There is free flow of contrast through the stomach and duodenum without delay. There are postsurgical changes and postsurgical edema. There is free flow of contrast through the anastomosis. There is no evidence of extravasation. The visualized portion of the proximal small bowel is grossly normal. . IMPRESSION: There is no evidence of stricture or obstruction at the anastomosis. There is free flow contrast through the duodenum. There is no evidence of extravasation. 1.8 minutes of fluoro time was utilized for this procedure. <Electronically signed by Ag Tejeda > 07/26/20 1621 <Electronically signed by Rj Gibson > 07/26/20 [id number]
[2020-07-26] MEDS: FLUCONAZOLE 100 MG in IV 1 EA IV SCH (21:06)
[2020-07-27 02:00] VITALS: BP 154/78
[2020-07-27] MEDS: PIPERACILLIN/TAZOBACTAM SOD 3.375 GM in D5W MINI-BAG PLUS 50 ML IV SCH (05:07)
[2020-07-27] MEDS: POTASSIUM CHLORIDE INJ 40 MEQ in NS 0.45% 1,000 ML IV SCH (05:57)
[2020-07-27 06:00] VITALS: BP 144/68
[2020-07-27 06:56] LABS: BASO % 0.1 % (0.0-1.0); EOS # 0.1 10^3/uL (0.0-0.5); EOS % 1.3 % (0.0-3.0); HEMATOCRIT 27.7 % (36.0-47.0); HEMOGLOBIN 8.4 g/dl (12.0-15.5); LYMPH # 1.4 10^3/uL (1.5-5.0); LYMPH % 17.1 % (24.0-44.0); MEAN CORPUSCULAR HEMOGLOBIN 21.7 pg (27.0-33.0); MEAN CORPUSCULAR HGB CONC 30.3 g/dl (32.0-36.5); MEAN CORPUSCULAR VOLUME 71.6 fl (80.0-96.0); MONO # 1.5 10^3/uL (0.0-0.8); MONO % 19.3 % (0.0-5.0); NEUTROPHILS # 4.9 10^3/uL (1.5-8.5); NEUTROPHILS % 61.7 % (36.0-66.0); PLATELET COUNT, AUTOMATED 253 10^3/uL (150-450); RED BLOOD COUNT 3.87 10^6/uL (4.00-5.40); WHITE BLOOD COUNT 7.9 10^3/uL (4.0-10.0)
[2020-07-27 07:30] LABS: BLOOD UREA NITROGEN 4 MG/DL (7-18); CALCIUM LEVEL 7.9 MG/DL (8.5-10.1); CARBON DIOXIDE LEVEL 24 MEQ/L (21-32); CHLORIDE LEVEL 104 MEQ/L (98-107); CREATININE FOR GFR 0.26 MG/DL (0.55-1.30); GLOMERULAR FILTRATION RATE > 60.0 (>60); GLUCOSE, FASTING 123 MG/DL (70-100); POTASSIUM SERUM 3.7 MEQ/L (3.5-5.1); SODIUM LEVEL 136 MEQ/L (136-145)
--- NOTE | 2020-07-27 07:40 | IPNPDOC ---
Text Note Date of Service The patient was seen on 07/26/20. NOTE Patient has done well over the weekend and she is now on the regular med surge floor and out of the ICU since Sunday. She has remained hemodynamically stable. She remains to have a nasogastric tube in place which has markedly gotten down and drainage. She has been afebrile. NG tube in place pending an upper GI series. Vital signs over the weekend and this morning have been reviewed. Patient is comfortable NG tube in place with light then bilious fluid in the canister Lung sounds are clear to auscultation bilaterally without wheezing Heart rate has gone down. Heart rate now in the high 80s and low 90s. Abdomen is minimally distended but soft. Midline incision is covered with dry gauze. VINOD drain has mainly serous fluid No lower extremity edema Impression and plan She's now postop day 4 following exploratory laparotomy for perforated viscus with antrectomy and Greer-en-Y gastrojejunostomy She will have an upper GI series done today and if this does not show any leakage, we'll discontinue the nasogastric tube and start her on liquids. Continue with current antibiotics. Ambulate to hallways Incentive spirometer Lovenox for DVT prophylaxis VS,Fishbone, I+O VS, Fishbone, I+O Laboratory Tests 07/27/20 06:41 Vital Signs Date Time Temp Pulse Resp B/P (MAP) Pulse Ox O2 Delivery O2 Flow Rate FiO2 07/27/20 06:00 98.2 67 16 144/68 (93) 99 Room Air 07/22/20 19:00 2.0 I&O- Last 24 Hours up to 6 AM 07/27/20 05:59 Intake Total 3390 ml Output Total 2860 ml Balance 530 ml BRY INFANTE MD Jul 27, 2020 07:40
--- NOTE | 2020-07-27 07:42 | IPNPDOC ---
Text Note Date of Service The patient was seen on 07/27/20. NOTE Patient is now POD5 antrectomy RNY gastrojejunostomy Continues to do well UGIS yesterday did not show any leak, obstruction Tolerating clears. She denies any bloating, abdominal discomfort, nausea. On examination Patient looks comfortable Abdomen is minimally distended, soft. Midline incision with mame intact, no drainage. Minimally tender around the incision sites. Left-sided drain with serous fluid Plan: full liquids today sliv ambulate protonix convert to PO VS,Fishbone, I+O VS, Fishbone, I+O Laboratory Tests 07/27/20 06:41 Vital Signs Date Time Temp Pulse Resp B/P (MAP) Pulse Ox O2 Delivery O2 Flow Rate FiO2 07/27/20 06:00 98.2 67 16 144/68 (93) 99 Room Air 07/22/20 19:00 2.0 I&O- Last 24 Hours up to 6 AM 07/27/20 05:59 Intake Total 3390 ml Output Total 2860 ml Balance 530 ml BRY INFANTE MD Jul 27, 2020 07:42
[2020-07-27] MEDS: ENOXAPARIN 30MG/0.3ML SYRINGE (J1650 PER 10MG) SC SCH (08:56)
[2020-07-27] MEDS: lisinopriL 40 MG TAB PO SCH (08:56)
[2020-07-27] MEDS: PANTOPRAZOLE 40MG VIAL (C9113 PER 1) IV SCH (08:56)
[2020-07-27] MEDS: amLODIPine 10 MG TAB PO SCH (08:57)
[2020-07-27 10:00] VITALS: BP 140/80
[2020-07-27] MEDS ORDERED: PERCOCET 5MG/325MG TAB PO PRN (10:45)
[2020-07-27] MEDS: PERCOCET 5MG/325MG TAB PO PRN ×3 (11:32→22:03)
[2020-07-27 14:00] VITALS: BP 132/96
[2020-07-27] MEDS: metroNIDAZOLE (FLAGYL) 500MG TABLET PO SCH ×2 (14:12→22:03)
[2020-07-27 18:00] VITALS: BP 141/90
--- NOTE | 2020-07-27 18:09 | HPEPDOC ---
[facility] Medical History & Physical Date of Admission Jul 22, 2020 Date of Service: Jul 27, 2020 Attending Physician: Caprice Gray MD History and Physical Medicine consult H&P HISTORY OF PRESENT ILLNESS: Patient is a 35-year-old female PMH of HTN, chronic abdominal pain 2/2 to endometriosis who was admitted on 07/22/20 for perforated posterior antral ulcer requiring distal gastrectomy and gastrojejunal reconstruction. On 07/17/20 patient states she began feeling some lower abdominal pain, cervical crampy that she initially attributed to her endometriosis flaring up. She also complained of nausea with nonbloody vomitus, shortness of breath, constipation, decreased appetite with decreased PO intake. She tried ibuprofen at home but this did not help. Symptoms worsened throughout the week and on 07/22/20 she came to the ER with her . CT abd/pelvis showed: Extensive free air and free fluid throughout the abdomen and pelvis, focal air to the right of the rectum may indicate a site of perforation. Surgery was consulted and she was taken for distal gastrectomy and gastrojejunal reconstruction for what was later believed to be 2/2 to a large posterior perforated antral ulcer. A drain was placed in the abdomen as well as a nasogastric tube . NG tube taken out 07/26/20. She was given a patient controlled analgesia (CIVIL DESIGN TECHNICIAN) for pain control. Antibiotics/antifungals, fluconazole and Zosyn were started. Post-operatively patient improved , slowly advancing diet. Upper GI series done 07/26/20 showed no evidence of stricture or obstruction at the anastomosis, free flow contrast through the duodenum. There is no evidence of extravasation. Patient's blood pressure was of concern to primary team, we were consulted for medical management of HTN. At time of consult, patient denied chest pain, shortness of breath, n/v/d, fevers, chills, lightheadedness, dizziness, blurry vision. ROS: Negative except for what is mentioned above PAST MEDICAL HISTORY: 1. Chronic abdominal pain probably secondary to endometriosis. 2. Hypertension PAST SURGICAL HISTORY: No past surgical history SOCIAL HISTORY: Patient reports smoking about half pack a day. Denies alcohol use or recreational drug use. Full Code. ALLERGIES: Please see below. CURRENT MEDICATIONS: Please see below. PHYSICAL EXAMINATION: VS: Please see below CONSTITUTIONAL: No acute distress, resting comfortably, AAO x 3 EYES: PERRLA, EOM intact HENT, MOUTH: Normocephalic, atraumatic, moist mucous membranes, NECK: SUPPLE, no JVD, no lymphadenopathy, no carotid bruit CV: Regular rate and rhythm, S1S2 normal, no murmurs/rubs/gallops RESPIRATORY: Clear to auscultation bilaterally, no rales/rhonchi/wheezes GI: abd wounds appear clean, nonsuppurative, mild tenderness to palpation. BS positive in 4 quadrants, soft, nondistended, no rebound or guarding, no organomegaly : Deferred MUSCULOSKELETAL: Normal ROM. No cyanosis, clubbing, swelling, joint deformity, extremity edema INTEGUMENTARY: Intact, no rashes, no lesions, no erythema NEUROLOGIC: Cranial Nerves II-XII are intact, no focal deficits PSYCHIATRIC: Mood and affect are normal LABORATORY DATA: Please see below IMAGING: Upper GI series 07/26/20: There is no evidence of stricture or obstruction at the anastomosis. There is free flow contrast through the duodenum. There is no evidence of extravasation. ASSESSMENT: 35 y/o F with PMH of HTN, endometriosis admitted for perforated posterior antral ulcer, POD 5 antrectomy and gastrojejunal reconstruction. PLAN: 1. POD5 antrectomy and gastrojejunal reconstruction for a large posterior pe rforated antral ulcer -Pain controlled. -Upper GI series 07/26/20 above -Advanced to full liquids 07/27/20 -PT/OT -D/emelina fluconazole and zosyn IV. Currently on PO augmentin BID, PO flagyl -Surgery primary 2. HTN -Uncontrolled, elevated diastolic -IVFs stopped today -On amlodipine 10 mg, lisinopril 40 mg Po daily -Will give one dose of lasix 40 mg IV to see if improvement today, if helps, can consider starting daily dose 07/28/20 3. Endometriosis -F/u o/p with services rep 4. GI px -PPI 5. DVT px -enoxaparin DISPOSITION: Thank you kindly for this consult. Will continue to follow while inpatient. Vital Signs Vital Signs Date Time Temp Pulse Resp B/P (MAP) Pulse Ox O2 Delivery O2 Flow Rate FiO2 07/27/20 18:00 16 Room Air 07/27/20 14:00 98.4 91 132/96 (108) 99 07/22/20 19:00 2.0 Laboratory Data Labs 24H Laboratory Tests 2 07/27/20 06:41: Immature Granulocyte % (Auto) 0.5, Neutrophils (%) (Auto) 61.7, Lymphocytes (%) (Auto) 17.1L, Monocytes (%) (Auto) 19.3H, Eosinophils (%) (Auto) 1.3, Basophils (%) (Auto) 0.1, Neutrophils # (Auto) 4.9, Lymphocytes # (Auto) 1.4L, Monocytes # (Auto) 1.5H, Eosinophils # (Auto) 0.1, Basophils # (Auto) 0.0, Nucleated Red Blood Cells % (auto) 0.0, Anion Gap 8, Glomerular Filtration Rate > 60.0, Calcium Level 7.9L CBC/BMP Laboratory Tests 07/27/20 06:41 Microbiology Microbiology 07/22/20 Body Fluid Culture - Final, Complete 07/22/20 Anaerobic Culture - Final, Complete 07/22/20 Blood Culture - Final, Complete NO GROWTH AFTER 5 DAYS 07/22/20 Blood Culture - Final, Complete NO GROWTH AFTER 5 DAYS Home Medications Scheduled Amlodipine Besylate (Amlodipine Besylate) 10 Mg Tablet, 10 MG PO DAILY Lisinopril (Lisinopril) 40 Mg Tablet, 40 MG PO DAILY Scheduled PRN Bismuth Subsalicylate (Pepto-Bismol) 262 Mg/15 Ml Oral.susp, 30 ML PO PRN PRN for NAUSEA Butalb/Acetaminophen/Caffeine (Ysjaph-Eqameatf-Inir 50-325-40) 1 Each Tablet, 1 TAB PO TID PRN for HEADACHE Ibuprofen (Ibuprofen) 200 Mg Capsule, 800 MG PO TID PRN for PAIN / FEVER Allergies Coded Allergies: No Known Allergies (Unverified , 07/22/20) A-FIB/CHADSVASC A-FIB History Current/History of A-Fib/PAF?: No Current PO Anticoag Therapy: No Age/Risk Factor Scoring CHADSVASC: CHADSVASC Response (Comments) Value Age Risk Factor Age < 65 years old 0 Gender Risk Factor Female 1 Hx of CHF No 0 Hx of HTN Yes 1 Hx of Stroke/TIA/or VTE No 0 Hx of Diabetes No 0 Hx of Vascular Disease No 0 Total 2 Treatment Treatment ordered: Other Other anticoagulant ordered: enoxaparin Caprice Gray MD Jul 27, 2020 18:09
[2020-07-27] MEDS ORDERED: FUROSEMIDE 40MG/4ML VIAL (J1940) IV ONE (18:15)
[2020-07-27] MEDS: FLUCONAZOLE 50MG TABLET PO SCH (20:40)
[2020-07-27] MEDS: AUGMENTIN 500 MG TAB PO SCH (20:40)
[2020-07-27 22:00] VITALS: BP 133/89
[2020-07-28] VITALS (7 sets, daily range): BP systolic 28–132; BP diastolic 49–86
[2020-07-28] MEDS: PERCOCET 5MG/325MG TAB PO PRN ×4 (02:22→23:13)
[2020-07-28] MEDS: metroNIDAZOLE (FLAGYL) 500MG TABLET PO SCH ×3 (05:28→21:41)
[2020-07-28 08:24] LABS: BASO % 0.2 % (0.0-1.0); EOS # 0.1 10^3/uL (0.0-0.5); EOS % 1.5 % (0.0-3.0); HEMATOCRIT 34.3 % (36.0-47.0); HEMOGLOBIN 10.4 g/dl (12.0-15.5); LYMPH # 1.8 10^3/uL (1.5-5.0); LYMPH % 19.1 % (24.0-44.0); MEAN CORPUSCULAR HEMOGLOBIN 22.2 pg (27.0-33.0); MEAN CORPUSCULAR HGB CONC 30.3 g/dl (32.0-36.5); MEAN CORPUSCULAR VOLUME 73.3 fl (80.0-96.0); MONO # 1.8 10^3/uL (0.0-0.8); MONO % 18.8 % (0.0-5.0); NEUTROPHILS # 5.6 10^3/uL (1.5-8.5); NEUTROPHILS % 59.8 % (36.0-66.0); PLATELET COUNT, AUTOMATED 387 10^3/uL (150-450); RED BLOOD COUNT 4.68 10^6/uL (4.00-5.40); WHITE BLOOD COUNT 9.3 10^3/uL (4.0-10.0)
[2020-07-28 08:44] LABS: BLOOD UREA NITROGEN 5 MG/DL (7-18); CALCIUM LEVEL 9.3 MG/DL (8.5-10.1); CARBON DIOXIDE LEVEL 31 MEQ/L (21-32); CHLORIDE LEVEL 97 MEQ/L (98-107); CREATININE FOR GFR 0.46 MG/DL (0.55-1.30); GLOMERULAR FILTRATION RATE > 60.0 (>60); GLUCOSE, FASTING 116 MG/DL (70-100); POTASSIUM SERUM 3.7 MEQ/L (3.5-5.1); SODIUM LEVEL 135 MEQ/L (136-145)
[2020-07-28] MEDS ORDERED: FUROSEMIDE 20 MG TAB PO SCH (09:00)
[2020-07-28] MEDS: lisinopriL 40 MG TAB PO SCH (09:11)
[2020-07-28] MEDS: ENOXAPARIN 30MG/0.3ML SYRINGE (J1650 PER 10MG) SC SCH (09:12)
[2020-07-28] MEDS: PANTOPRAZOLE 40MG VIAL (C9113 PER 1) IV SCH (09:12)
[2020-07-28] MEDS: amLODIPine 10 MG TAB PO SCH (09:13)
[2020-07-28] MEDS: AUGMENTIN 500 MG TAB PO SCH ×2 (09:13→20:07)
--- NOTE | 2020-07-28 14:08 | IPNPDOC ---
Date Seen The patient was seen on 07/28/20. Progress Note SUBJECTIVE: No complaints overnight. BP improved with IV lasix, started on daily dose today. -500 mL/24 hours. Walking the hallways well, advanced diet to soft. Denies incr abd pain, n/v/d, fevers, chills, shortness of breath. OBJECTIVE: PHYSICAL EXAMINATION: VS: Please see below CONSTITUTIONAL: No acute distress, resting comfortably, AAO x 3 EYES: PERRLA, EOM intact HENT, MOUTH: Normocephalic, atraumatic, moist mucous membranes, NECK: SUPPLE, no JVD, no lymphadenopathy, no carotid bruit CV: Regular rate and rhythm, S1S2 normal, no murmurs/rubs/gallops RESPIRATORY: Clear to auscultation bilaterally, no rales/rhonchi/wheezes GI: abd wounds appear clean, nonsuppurative, mild tenderness to palpation. BS positive in 4 quadrants, soft, nondistended, no rebound or guarding, no organo megaly : Deferred MUSCULOSKELETAL: Normal ROM. No cyanosis, clubbing, swelling, joint deformity, e xtremity edema INTEGUMENTARY: Intact, no rashes, no lesions, no erythema NEUROLOGIC: Cranial Nerves II-XII are intact, no focal deficits PSYCHIATRIC: Mood and affect are normal LABORATORY DATA: Please see below IMAGING: Upper GI series 07/26/20: There is no evidence of stricture or obstruction at the anastomosis. There is free flow contrast through the duodenum. There is no evidence of extravasation. ASSESSMENT: 35 y/o F with PMH of HTN, endometriosis admitted for perforated posterior antral ulcer, POD 5 antrectomy and gastrojejunal reconstruction. PLAN: 1. POD6 antrectomy and gastrojejunal reconstruction for a large posterior perforated antral ulcer -Pain controlled, no BM since 07/26/20 -Upper GI series 07/26/20 above -Advanced to soft diet 07/28/20 -PT/OT cont -C/w PO augmentin BID, PO flagyl -Surgery primary 2. HTN, worsened likely by fluid overload. -Much improved, -500 mL/24hr. -IVFs stopped 07/27/20 -C/w amlodipine 10 mg, lisinopril 40 mg Po daily -Will start on low dose lasix while here, does not need to be d/emelina with it. 3. Endometriosis -F/u o/p with special needs caregiver 4. GI px -PPI 5. DVT px -enoxaparin VS, I&O, 24H, Fishbone Vital Signs/I&O Vital Signs Date Time Temp Pulse Resp B/P (MAP) Pulse Ox O2 Delivery O2 Flow Rate FiO2 07/28/20 12:26 18 Room Air 07/28/20 10:00 97.6 100 128/86 (100) 99 07/22/20 19:00 2.0 I&O- Last 24 Hours up to 6 AM 07/28/20 06:00 Intake Total 2335 ml Output Total 1995 ml Balance 340 ml Laboratory Data 24H LABS Laboratory Tests 2 07/28/20 08:08: Immature Granulocyte % (Auto) 0.6, Neutrophils (%) (Auto) 59.8, Lymphocytes (%) (Auto) 19.1L, Monocytes (%) (Auto) 18.8H, Eosinophils (%) (Auto) 1.5, Basophils (%) (Auto) 0.2, Neutrophils # (Auto) 5.6, Lymphocytes # (Auto) 1.8, Monocytes # (Auto) 1.8H, Eosinophils # (Auto) 0.1, Basophils # (Auto) 0.0, Nucleated Red Blood Cells % (auto) 0.0, Anion Gap 7L, Glomerular Filtration Rate > 60.0, Calcium Level 9.3# CBC/BMP Laboratory Tests 07/28/20 08:08 Microbiology Microbiology 07/22/20 Body Fluid Culture - Final, Complete 07/22/20 Anaerobic Culture - Final, Complete 07/22/20 Blood Culture - Final, Complete NO GROWTH AFTER 5 DAYS 07/22/20 Blood Culture - Final, Complete NO GROWTH AFTER 5 DAYS Current Medications Current Medications Medications (Trade) Dose Ordered Sig/James Route PRN Reason Start Time Stop Time Status Last Admin Dose Admin Acetaminophen (Tylenol Tab) 650 mg Q4HP PRN PO MILD PAIN or TEMP > 101 07/22/20 15:45 Amlodipine Besylate (Norvasc) 10 mg DAILY PO 07/26/20 09:00 07/28/20 09:13 Amoxicillin/ Clavulanate Potassium (Augmentin) 500 mg BID PO 07/27/20 21:00 07/28/20 09:13 Diphenhydramine HCl (Benadryl) 12.5 mg Q4HP PRN IV ITCHING 07/22/20 16:00 07/27/20 10:43 DC Enoxaparin Sodium (Lovenox) 30 mg DAILY SC 07/23/20 09:00 07/28/20 09:12 Fentanyl Citrate (Sublimaze) 25 mcg Q5MP PRN IV PAIN LEVEL 5-10 07/22/20 17:00 07/22/20 18:00 Cancel Fluconazole (Diflucan) 100 mg QHS PO 07/27/20 21:00 07/27/20 20:40 Fluconazole 100 mg/IV Miscellaneous Supplies 50 ml @ 50 mls/hr Q24H IV 07/23/20 21:00 07/27/20 10:43 DC 07/26/20 21:06 Furosemide (Lasix) 20 mg DAILY PO 07/28/20 09:00 07/28/20 09:13 Home Med (Med Rec Complete!) ASDIRECTED XX 07/22/20 11:30 07/22/20 11:28 DC Hydromorphone HCl (Dilaudid) 0.2 mg Q5MP PRN IV PAIN LEVEL 4-7 07/22/20 17:00 07/22/20 18:00 Cancel Ketorolac Tromethamine (ToRADol) 15 mg Q6HP PRN IV MILD/MODERATE PAIN (PS 1-7) 07/22/20 15:45 07/27/20 15:44 DC Lactated Ringer's 1,000 ml @ 100 mls/hr Q10H IV 07/22/20 17:00 07/22/20 17:43 DC Lactated Ringer's 1,000 ml @ 125 mls/hr Q8H IV 07/22/20 15:36 07/23/20 08:17 DC 07/23/20 03:07 Lisinopril (Prinivil) 40 mg DAILY PO 07/25/20 20:10 07/28/20 09:11 Metoclopramide HCl (REGLAN INJection) 10 mg Q6HP PRN IV NAUSEA OR VOMITING 07/22/20 17:00 07/22/20 18:00 DC Metronidazole (Flagyl) 500 mg Q8H PO 07/27/20 14:00 07/28/20 05:28 Miscellaneous (Unresolved Clarification Entry) SEE LABEL COMMENTS DAILY XX 07/27/20 09:00 07/27/20 10:55 DC Morphine Sulfate (Morphine Sulfate In 0.9%Nacl Iv Bag) Concentration 1 mg/ml ASDIRECTED PRN IV SEE LABEL COMMENTS 07/22/20 16:00 07/27/20 10:43 DC 07/25/20 19:37 Naloxone HCl (Narcan) 0.1 mg Q5MP PRN IV SEE LABEL COMMENTS 07/22/20 16:00 07/27/20 10:43 DC Nicotine (Nicoderm Cq 14mg) 1 patch DAILYPRN PRN TD NICOTINE WITHDRAWAL 07/23/20 17:15 07/25/20 18:56 Non-Formulary Medication (Epidural/FLOOR SURFACER [place]) USE THIS ENTRY TO VEND ... Q1M PRN XX SEE LABEL COMMENTS 07/22/20 16:00 07/27/20 10:43 DC Ondansetron HCl (ZOFRAN INJection) 4 mg Q4HP PRN IV NAUSEA OR VOMITING 07/22/20 17:00 07/22/20 18:00 DC Ondansetron HCl (ZOFRAN INJection) 4 mg Q6HP PRN IV NAUSEA OR VOMITING 07/22/20 15:45 07/24/20 10:43 DC Ondansetron HCl (ZOFRAN INJection) 4 mg Q6HP PRN IV NAUSEA 07/22/20 16:00 07/27/20 10:43 DC Oxycodone/ Acetaminophen (Percocet 5mg/ 325mg Tablet) 1 tab Q4HP PRN PO MODERATE PAIN (PS 5-7) 07/27/20 10:45 07/28/20 06:47 Oxycodone/ Acetaminophen (Percocet 5mg/ 325mg Tablet) 2 tab Q4HP PRN PO SEVERE PAIN (PS 8-10) 07/27/20 10:45 07/28/20 12:26 Pantoprazole Sodium (Protonix) 40 mg DAILY IV 07/23/20 09:00 07/28/20 09:12 Piperacillin Sod/ Tazobactam Sod 3.375 gm/Dextrose 50 ml @ 50 mls/hr Q6H IV 07/22/20 17:00 07/27/20 10:43 DC 07/27/20 05:07 Potassium Chloride 10 meq/ IV Miscellaneous Supplies 100 ml @ 100 mls/hr ASDIRECTED IV 07/24/20 05:15 07/24/20 05:09 DC Potassium Chloride 40 meq/ Lactated Ringer's 1,020 ml @ 100 mls/hr [id number] IV 07/24/20 06:00 07/24/20 10:46 DC 07/24/20 06:28 Potassium Chloride 40 meq/ Sodium Chloride 1,020 ml @ 75 mls/hr [id number] IV 07/24/20 12:00 07/27/20 11:48 DC 07/27/20 05:57 Potassium Chloride/Dextrose/ Sod Cl 1,000 ml @ 80 mls/hr [id number] IV 07/23/20 07:15 07/24/20 05:20 DC 07/23/20 16:22 Sodium Chloride 1,000 ml @ 15 mls/hr Q24H IV 07/22/20 15:40 UNV Allergies Coded Allergies: No Known Allergies (Unverified , 07/22/20) Caprice Gray MD Jul 28, 2020 14:08
[2020-07-28] MEDS: FLUCONAZOLE 50MG TABLET PO SCH (20:07)
[2020-07-29 02:00] VITALS: BP 119/76
[2020-07-29] MEDS: metroNIDAZOLE (FLAGYL) 500MG TABLET PO SCH (05:34)
[2020-07-29] MEDS: PERCOCET 5MG/325MG TAB PO PRN ×2 (05:35→09:38)
[2020-07-29 06:00] VITALS: BP 110/73
[2020-07-29 07:34] LABS: HEMATOCRIT 34.5 % (36.0-47.0); MEAN CORPUSCULAR HEMOGLOBIN 21.3 pg (27.0-33.0); MEAN CORPUSCULAR VOLUME 73.4 fl (80.0-96.0); PLATELET COUNT, AUTOMATED 452 10^3/uL (150-450); WHITE BLOOD COUNT 9.4 10^3/uL (4.0-10.0)
[2020-07-29 07:39] LABS: BASO % 0.1 % (0.0-1.0); EOS # 0.1 10^3/uL (0.0-0.5); EOS % 1.3 % (0.0-3.0); LYMPH # 2.6 10^3/uL (1.5-5.0); LYMPH % 26.4 % (24.0-44.0); MONO # 1.4 10^3/uL (0.0-0.8); MONO % 14.4 % (0.0-5.0); NEUTROPHILS # 5.6 10^3/uL (1.5-8.5); NEUTROPHILS % 57.3 % (36.0-66.0)
[2020-07-29 07:57] LABS: BLOOD UREA NITROGEN 7 MG/DL (7-18); CALCIUM LEVEL 9.3 MG/DL (8.5-10.1); CARBON DIOXIDE LEVEL 29 MEQ/L (21-32); CHLORIDE LEVEL 99 MEQ/L (98-107); CREATININE FOR GFR 0.49 MG/DL (0.55-1.30); GLOMERULAR FILTRATION RATE > 60.0 (>60); GLUCOSE, FASTING 126 MG/DL (70-100); POTASSIUM SERUM 4.2 MEQ/L (3.5-5.1); SODIUM LEVEL 135 MEQ/L (136-145)
[2020-07-29 08:07] LABS: ANISOCYTOSIS 1+; ATYPICAL LYMPH 2 % (0-5); HYPOCHROMASIA 1+; LYMPHOCYTES 27 % (16-44); MICROCYTOSIS 1+; MONOCYTES 4 % (0-5); NEUTROPHILS 66 % (28-66); PLATELET ESTIMATE INCREASED (NORMAL)
[2020-07-29 08:08] LABS: POIKILOCYTOSIS 1+
--- NOTE | 2020-07-29 08:26 | DS.PDOC ---
Discharge Summary General Date of Admission Jul 22, 2020 at 11:16 Date of Discharge Jul Attending Physician: BRY INFANTE MD Discharge Summary PROCEDURES PERFORMED DURING STAY: Exploratory Laparotomy, Antrectomy, RNY gastrojejunostomy. ADMITTING DIAGNOSES: 1. Perforated Viscus 2. Severe sepsis with hypotension 3. Generalized peritonitis. DISCHARGE DIAGNOSES: 1. Large perforated posterior antral ulcer status post antrectomy and Greer-en-Y gastrojejunostomy 2. Generalized peritonitis with severe sepsis and hypotension secondary to perforated ulcer resolved 3. Hypertension COMPLICATIONS/CHIEF COMPLAINT: Perforated Viscus. HISTORY OF PRESENT ILLNESS: . Patient is a 35-year-old female with a history of some sort of chronic abdominal pain which was initially attributed to endometriosis. She has just transferred here from [place] as her is in the area she reports that symptoms started about Sunday she was feeling some lower abdominal pain, cervical crampy that she initially attributed to her endometriosis flaring up. This was accompanied with nausea and multiple episodes of bilious vomiting. Symptoms persisted through to Sunday with the pain has worsened despite about Sunday. She was then brought by her to the emergency room as her symptoms was getting worse. She reports shortness of breath due to the degree of pain. She has not had a bowel movement since. She has not really eaten much since the start of her symptoms. Baseline she reports no chronic medical problems save for presumably her endometriosis. Patient reports taking ibuprofen and Pepto-Bismol for her chronic abdominal pain about 4 tablets 2-3 times a day of a 200 mg ibuprofen daily. HOSPITAL COURSE: After brief period of IV fluid resuscitation in the emergency room, she was brought promptly to the operating room for emergent abdominal exploration for perforated viscus. He started this laparoscopically with eventually had to convert to open laparotomy. She underwent antrectomy and Greer-en-Y gastrojejunostomy for a large perforated posterior wall antral ulcer. When he hasn't procedure were able to get her off vasopressors. She also started to make urine. She was admitted in ICU for postoperative monitoring. She was continued on twice a day IV Protonix. She did well perioperatively. We kept her in ICU for 48 hours and subsequently, transferred to the regular floors. I kept the nasogastric tube for up to. The 4 were she had an upper GI series demonstrating good flow through our anastomosis. This was discontinued and she was started on clear liquids which he tolerated. Our gardening supervisor came and evaluated her for post gastrectomy nutrition. She was advanced to a soft diet which he tolerated. We had some issue in controlling her blood pressure which was a known problem for her before this hospitalization. Recall on the hospitalist and they adjusted her medication. She continued to do well and was subsequently discharged home at postop day 7 tolerating soft diet. Her VINOD drain has been removed prior to her discharge. DISCHARGE MEDICATIONS: Please see below. ALLERGIES: Please see below. PHYSICAL EXAMINATION ON DISCHARGE: VITAL SIGNS: Please see below. GENERAL: Comfortable HEENT: Normocephalic, atraumatic. Lips and mucosa are moist. NECK: Supple, no jugular venous distention CARDIOVASCULAR EXAMINATION: Regular heart rate and rhythm without murmurs RESPIRATORY EXAMINATION: Lung sounds are clear to auscultation bilaterally w ithout wheezing ABDOMINAL EXAMINATION: Soft, nondistended abdomen. Midline incision with mame intact. No drainage or erythema. VINOD drain site clean. Nontender on palpation EXTREMITIES: No significant extremity edema SKIN: Warm and dry NEUROLOGICAL EXAMINATION: Awake, alert and oriented LABORATORY DATA: Please see below. IMAGING: CT scan abdomen and pelvis on admission PROGNOSIS: Good ACTIVITY: Light activity times another 2 weeks. DIET: Soft diet for the next 2 weeks DISCHARGE PLAN: Patient is discharged home on another seven-day course of oral antibiotics. She was discharged home on Augmentin and Diflucan. She will also be maintained on Protonix DISPOSITION: . DISCHARGE INSTRUCTIONS: 1. As above 2. Follow-up next week for removal of mame. ITEMS TO FOLLOWUP ON ON OUTPATIENT: 1. Symptom check DISCHARGE CONDITION: Stable. TIME SPENT ON DISCHARGE: Greater than 30 minutes. Vital Signs/I&Os Vital Signs Date Time Temp Pulse Resp B/P (MAP) Pulse Ox O2 Delivery O2 Flow Rate FiO2 07/29/20 06:05 20 07/29/20 06:00 97.9 76 110/73 (85) 97 Room Air I&O- Last 24 Hours up to 6 AM 07/29/20 06:00 Intake Total 990 ml Output Total 1070 ml Balance -80 ml Laboratory Data Labs 24H Laboratory Tests 2 07/29/20 07:17: Immature Granulocyte % (Auto) 0.5, Neutrophils (%) (Auto) 57.3, Lymphocytes (%) (Auto) 26.4, Monocytes (%) (Auto) 14.4H, Eosinophils (%) (Auto) 1.3, Basophils (%) (Auto) 0.1, Neutrophils # (Auto) 5.6, Lymphocytes # (Auto) 2.6, Monocytes # (Auto) 1.4H, Eosinophils # (Auto) 0.1, Basophils # (Auto) 0.0, Immature Gran ulocyte # (Auto) 0.1H, Nucleated Red Blood Cells % (auto) 0.0, Neutrophils 66, Band Neutrophils 1, Lymphocytes (Manual) 27, Monocytes (Manual) 4, Atypical Lymphocytes 2, Hypochromasia 1+, Poikilocytosis 1+, Anisocytosis 1+, Microcytosis 1+, Platelet Estimate INCREASED, Anion Gap 7L, Glomerular Filtr ation Rate > 60.0, Calcium Level 9.3 CBC/BMP Laboratory Tests 07/29/20 07:17 Microbiology Microbiology 07/22/20 Body Fluid Culture - Final, Complete 07/22/20 Anaerobic Culture - Final, Complete 07/22/20 Blood Culture - Final, Complete NO GROWTH AFTER 5 DAYS 07/22/20 Blood Culture - Final, Complete NO GROWTH AFTER 5 DAYS Discharge Medications Scheduled Amlodipine Besylate (Amlodipine Besylate) 10 Mg Tablet, 10 MG PO DAILY, (Reported) Amoxicillin/Potassium Clav (Amox-Clav 500-125 mg Tablet) 1 Each Tablet, 500 MG PO BID Fluconazole (Diflucan) 50 Mg Tablet, 100 MG PO QHS Lisinopril (Lisinopril) 40 Mg Tablet, 40 MG PO DAILY, (Reported) Metronidazole (Flagyl) 500 Mg Tablet, 500 MG PO Q8H Scheduled PRN Bismuth Subsalicylate (Pepto-Bismol) 262 Mg/15 Ml Oral.susp, 30 ML PO PRN PRN for NAUSEA, (Reported) Butalb/Acetaminophen/Caffeine (Muisku-Qsnvtpat-Algq 50-325-40) 1 Each Tablet, 1 TAB PO TID PRN for HEADACHE, (Reported) Oxycodone/Acetaminophen (Oxycodone-Acetaminophen 5-325) 1 Each Tablet, 1 TAB PO Q6HP PRN for MODERATE PAIN (PS 5-7) Allergies Coded Allergies: No Known Allergies (Unverified , 07/22/20) BRY INFANTE MD Jul 29, 2020 08:26
[2020-07-29] MEDS ORDERED: DIFL50TA PO (08:44)
[2020-07-29] MEDS ORDERED: FLAG500T PO (08:44)
[2020-07-29] MEDS ORDERED: PERCOCET PO (08:44)
[2020-07-29] MEDS ORDERED: AMOX500T2 PO (08:44)
[2020-07-29] MEDS ORDERED: FUROSEMIDE 10MG PER 1/2 TABLET PO SCH (09:00)
[2020-07-29] MEDS: ENOXAPARIN 30MG/0.3ML SYRINGE (J1650 PER 10MG) SC SCH (09:00)
[2020-07-29] MEDS: PANTOPRAZOLE 40MG VIAL (C9113 PER 1) IV SCH (09:00)
[2020-07-29] MEDS: AUGMENTIN 500 MG TAB PO SCH (09:36)
[2020-07-29] MEDS: amLODIPine 10 MG TAB PO SCH (09:37)
[2020-07-29] MEDS: lisinopriL 40 MG TAB PO SCH (09:37)
--- NOTE | 2020-08-02 11:26 | IPNPDOC ---
Text Note Date of Service The patient was seen on 07/28/20. NOTE POD6 antrectomy RNY gastrojejunostomy for perforated antral ulcer started on soft diet which she will be on at home for the next two weeks. Tolerating diet well. He had an issue with regards to her blood pressure which according to her has been a perineal problem in trying to control it as an outpatient. Have asked the hospitalist to evaluate her and adjust her medications. On examination Patient is awake alert and oriented Looks very comfortable Abdomen is flat, soft, nondistended. Midline incision is intact with mame intact, no drainage. Left side drainage with small amount of serous fluid. Minimally tender around the incision site Plans PO protonix PO abx ambulate Adjust blood pressure medications per hospitalist. VS,Fishbone, I+O VS, Fishbone, I+O Vital Signs Date Time Temp Pulse Resp B/P (MAP) Pulse Ox O2 Delivery O2 Flow Rate FiO2 07/28/20 06:47 20 07/28/20 06:00 98.0 70 112/69 (83) 99 Room Air 07/22/20 19:00 2.0 I&O- Last 24 Hours up to 6 AM 07/28/20 06:00 Intake Total 2335 ml Output Total 1995 ml Balance 340 ml BRY INFANTE MD Jul 28, 2020 08:36
== END 2020-07-29 10:49 | disposition home or self-care (01) | DRG 853 ==
LOC: M ED 09:25 → M ED INP 11:16 → M ICU 16:51 → M MSPAV 07-24 16:11
PROVIDERS: ADMIT Surgery; ATTEND Surgery
PROC: 0D160ZA Bypass Stomach to Jejunum, Open Approach (ICD-10-PCS; principal; 2020-07-22 10:47)
DX: A41.9 Sepsis, unspecified organism (principal); K25.1 Acute gastric ulcer with perforation; K65.0 Generalized (acute) peritonitis; I10 Essential (primary) hypertension; Z79.899 Other long term (current) drug therapy; N80.9 Endometriosis, unspecified; F17.200 Nicotine dependence, unspecified, uncomplicated; Z53.31 Laparoscopic surgical procedure converted to open procedure

== ENCOUNTER 2023-02-02 14:37 | Emergency (ER) | payer OTHER ==
[~2023-02-02] VITALS: Ht 152.4 cm; Wt 42.9 kg
[~2023-02-02 14:37] MED LIST changes: +AMOX500T2 PO; +DIFL50TA PO; +FLAG500T PO; -LISI40TA PO; +LISI40TA4 PO; +PERCOCET PO
[2023-02-02 14:40] VITALS: BP 132/97
[2023-02-02] MEDS ORDERED: TETRACAINE 0.5% OPHTH SOLN 4ML OD ONE (15:05)
[2023-02-02] MEDS ORDERED: FLUORESCEIN OPHTH 1MG STRIP OD ONE (15:05)
[2023-02-02] MEDS ORDERED: CIPR0.3S37 OS ×2 (15:24→15:50)
[2023-02-02] MEDS ORDERED: DEXA1OPD OS ×2 (15:24→15:50)
== END 2023-02-02 15:36 | disposition home or self-care (01) ==
LOC: M ED 14:37
DX: T26.92XA Corrosion of left eye and adnexa, part unspecified, initial encounter (principal); H20.052 Hypopyon, left eye; I10 Essential (primary) hypertension; F17.200 Nicotine dependence, unspecified, uncomplicated; Z79.811 Long term (current) use of aromatase inhibitors; Z79.2 Long term (current) use of antibiotics

== ENCOUNTER → 2023-10-29 | Outpatient (REF) | payer OTHER ==
[~2023-10-29] MED LIST changes: +CIPR0.3S37 OS; +DEXA1OPD OS
[2023-10-29 13:02] LABS: BASO % 0.6 % (0.0-1.0); EOS % 0.6 % (0.0-3.0); HEMATOCRIT 41.5 % (36.0-47.0); HEMOGLOBIN 13.7 g/dl (12.0-15.5); LYMPH # 2.1 10^3/uL (1.5-5.0); LYMPH % 39.1 % (24.0-44.0); MEAN CORPUSCULAR HEMOGLOBIN 29.4 pg (27.0-33.0); MEAN CORPUSCULAR VOLUME 89.1 fl (80.0-96.0); MONO # 0.5 10^3/uL (0.0-0.8); MONO % 9.5 % (2.0-8.0); NEUTROPHILS # 2.7 10^3/uL (1.5-8.5); PLATELET COUNT, AUTOMATED 257 10^3/uL (150-450); RED BLOOD COUNT 4.66 10^6/uL (4.00-5.40); WHITE BLOOD COUNT 5.5 10^3/uL (4.0-10.0)
[2023-10-29 13:26] LABS: ALKALINE PHOSPHATASE 75 U/L (46-116); ALT/SGPT 23 U/L (7.0-40); AST/SGOT 17 U/L (<34); BILIRUBIN,TOTAL 0.3 MG/DL (0.3-1.2); BLOOD UREA NITROGEN 8 MG/DL (9-23); CALCIUM LEVEL 9.3 MG/DL (8.5-10.1); CARBON DIOXIDE LEVEL 28 MMOL/L (20-31); CHLORIDE LEVEL 103 MMOL/L (98-107); CHOLESTEROL LEVEL 201 MG/DL (<200); CHOLESTEROL RISK RATIO 2.25 (<5); CREATININE FOR GFR 0.47 MG/DL (0.55-1.30); GLOMERULAR FILTRATION RATE > 60.0 (>60); GLUCOSE, FASTING 104 MG/DL (60-100); IRON (FE) 36 UG/DL (50-170); LDL CHOLESTEROL 96.4 MG/DL (<100); POTASSIUM SERUM 4.7 MMOL/L (3.5-5.1); SODIUM LEVEL 137 MMOL/L (136-145); THYROID STIMULATING HORMONE 1.117 uIU/ML (0.55-4.78); TOTAL IRON BINDING CAPACITY 400 UG/DL (250-425); TOTAL PROTEIN 7.2 G/DL (5.7-8.2); TRIGLYCERIDES LEVEL 78 MG/DL (<150)
[2023-10-29 13:27] LABS: FERRITIN 6.2 NG/ML (7.3-270.7)
[2023-10-29 13:28] LABS: VITAMIN B12 LEVEL 831 PG/ML (211-911)
[2023-10-29 13:30] LABS: FOLATE 13.5 NG/ML (>5.4)
[2023-10-29 13:40] LABS: HEMOGLOBIN A1c 5.2 % (4.0-6.0)
== END ==
LOC: M LAB REF 11:59
PROVIDERS: ATTEND Nurse Practitioner Family
DX: D64.9 Anemia, unspecified (principal); Z13.228 Encounter for screening for other metabolic disorders

== ENCOUNTER 2024-02-27 14:16 | Emergency (ER) | payer OTHER ==
[~2024-02-27] VITALS: Ht 152.4 cm; Wt 42.8 kg
[2024-02-27 14:16] VITALS: BP 157/91; TEMP 97.9; O2SAT 96
[~2024-02-27 14:16] MED LIST changes: +BUTA1CAP; +OMEP40CA5; +VITA1CAP25
== END 2024-02-27 14:45 | disposition left against medical advice (07) ==
LOC: M ED 14:16
DX: Z53.21 Procedure and treatment not carried out due to patient leaving prior to being seen by health care provider (principal)

== ENCOUNTER → 2024-12-16 | Outpatient (REF) | payer OTHER ==
[2024-12-16 15:36] LABS: ALBUMIN 3.4 G/DL (3.2-5.2); ALKALINE PHOSPHATASE 74 U/L (35-104); ALT/SGPT 63 U/L (7.0-40); AST/SGOT 39 U/L (<34); BILIRUBIN,TOTAL < 0.2 MG/DL (0.3-1.2); BLOOD UREA NITROGEN 9 MG/DL (9-23); CALCIUM LEVEL 9.1 MG/DL (8.5-10.1); CARBON DIOXIDE LEVEL 29 MMOL/L (20-31); CHLORIDE LEVEL 106 MMOL/L (98-107); CHOLESTEROL LEVEL 210 MG/DL (<200); CREATININE FOR GFR 0.46 MG/DL (0.55-1.30); GLOMERULAR FILTRATION RATE > 60.0 (>58); GLUCOSE, FASTING 92 MG/DL (60-100); HDL CHOLESTEROL 87.2 MG/DL (>40); IRON (FE) 16 UG/DL (50-170); LDL CHOLESTEROL 106.2 MG/DL (<100); MAGNESIUM LEVEL 1.9 MG/DL (1.8-2.4); NON-HDL-C 122.8 MG/DL; PERCENT SATURATION 4.2 % (13.2-45.0); POTASSIUM SERUM 4.4 MMOL/L (3.5-5.1); SODIUM LEVEL 142 MMOL/L (136-145); TOTAL IRON BINDING CAPACITY 379 UG/DL (250-425); TOTAL PROTEIN 6.6 G/DL (5.7-8.2); TRIGLYCERIDES LEVEL 83 MG/DL (<150)
[2024-12-16 15:39] LABS: THYROID STIMULATING HORMONE 0.961 uIU/ML (0.55-4.78)
[2024-12-16 15:40] LABS: FERRITIN 2.5 NG/ML (7.3-270.7); TOTAL 25(OH) VITAMIN D 13.6 NG/ML (20.0-100.0)
[2024-12-16 15:41] LABS: VITAMIN B12 LEVEL 431 PG/ML (211-911)
[2024-12-16 15:45] LABS: BASO % 0.4 % (0.0-1.0); EOS % 0.4 % (0.0-3.0); HEMATOCRIT 36.2 % (36.0-47.0); HEMOGLOBIN 11.8 g/dl (12.0-15.5); LYMPH % 18.8 % (24.0-44.0); MEAN CORPUSCULAR HGB CONC 32.6 g/dl (32.0-36.5); MONO # 1.1 10^3/uL (0.0-0.8); MONO % 10.2 % (2.0-8.0); NEUTROPHILS # 7.6 10^3/uL (1.5-8.5); NEUTROPHILS % 69.9 % (36.0-66.0); PLATELET COUNT, AUTOMATED 311 10^3/uL (150-450); RED BLOOD COUNT 4.21 10^6/uL (4.00-5.40); WHITE BLOOD COUNT 10.8 10^3/uL (4.0-10.0)
[2024-12-16 15:54] LABS: HEMOGLOBIN A1c 5.4 % (4.0-6.0)
[2024-12-16 15:58] LABS: FOLATE 7.7 NG/ML (>5.4)
== END ==
LOC: M LAB REF 15:04
PROVIDERS: ATTEND Nurse Practitioner Family
DX: D64.9 Anemia, unspecified (principal); R63.6 Underweight; E55.9 Vitamin D deficiency, unspecified

== ENCOUNTER → 2024-12-31 | Outpatient (REF) | payer OTHER ==
[2024-12-31 18:38] LABS: BASO # 0.1 10^3/uL (0.0-0.2); BASO % 0.4 % (0.0-1.0); EOS # 0.1 10^3/uL (0.0-0.5); EOS % 0.5 % (0.0-3.0); HEMATOCRIT 37.8 % (36.0-47.0); HEMOGLOBIN 12.1 g/dl (12.0-15.5); LYMPH # 2.8 10^3/uL (1.5-5.0); LYMPH % 20.5 % (24.0-44.0); MEAN CORPUSCULAR HEMOGLOBIN 27.1 pg (27.0-33.0); MEAN CORPUSCULAR VOLUME 84.8 fl (80.0-96.0); MONO # 1.4 10^3/uL (0.0-0.8); MONO % 10.3 % (2.0-8.0); NEUTROPHILS # 9.2 10^3/uL (1.5-8.5); NEUTROPHILS % 67.9 % (36.0-66.0); PLATELET COUNT, AUTOMATED 386 10^3/uL (150-450); RED BLOOD COUNT 4.46 10^6/uL (4.00-5.40); WHITE BLOOD COUNT 13.6 10^3/uL (4.0-10.0)
[2024-12-31 18:40] LABS: ALBUMIN 3.8 G/DL (3.2-5.2); ALKALINE PHOSPHATASE 78 U/L (35-104); ALT/SGPT 22 U/L (7.0-40); AST/SGOT 11 U/L (<34); BILIRUBIN,DIRECT < 0.1 MG/DL (<0.4); BILIRUBIN,TOTAL 0.3 MG/DL (0.3-1.2)
== END ==
LOC: M LAB REF 17:46
PROVIDERS: ATTEND Nurse Practitioner Family
DX: D64.9 Anemia, unspecified (principal); R74.8 Abnormal levels of other serum enzymes